=== PATIENT | male | born 1940 | race Caucasian/White ===

== ENCOUNTER 2024-12-09 11:06 | Inpatient (IN) | payer MEDICARE, OTHER ==
[~2024-12-09] VITALS: Ht 175.2 cm; Wt 76.7 kg
[2024-12-09 10:48] VITALS: BP 165/65
[~2024-12-09 11:06] MED LIST: MILK OF MA400 MG/53 PO; PRAZOSIN HCL1 MG PO; TYLENOL325 M2 PO; VITAMIN D3125 MC2 PO
[2024-12-09] MEDS ORDERED: BISACODYL10 MG R (12:18)
[2024-12-09] MEDS ORDERED: MULTIVITAMINS1 EAC6 PO (12:20)
[2024-12-09] MEDS ORDERED: FLEET MINERAL133 ML R (12:20)
[2024-12-09] MEDS ORDERED: hydrOXYzine hydrochloride 50 MG/ML VIAL IM PRN (12:25)
[2024-12-09] MEDS ORDERED: LORazepam 1 MG TAB PO PRN (12:25)
[2024-12-09] MEDS ORDERED: ACETAMINOPHEN 325 MG TAB PO PRN (12:30)
[2024-12-09] MEDS ORDERED: MG-AL HYDROXIDE/SIMETICONE 30 ML UDC PO PRN (12:30)
[2024-12-09] MEDS ORDERED: OMEPRAZOLE40 MG PO (14:57)
[2024-12-09] MEDS ORDERED: HYDROCHLOROTH12.5 M2 PO (14:58)
[2024-12-09] MEDS ORDERED: LASIX40 MG PO (14:58)
[2024-12-09] MEDS ORDERED: ZETIA10 MG PO (14:59)
[2024-12-09] MEDS ORDERED: LOPRESSOR25 MG PO (14:59)
[2024-12-09 20:00] VITALS: BP 141/61
[2024-12-09] MEDS ORDERED: Memantine Hydrochloride 5 MG TAB PO SCH (21:00)
[2024-12-09] MEDS ORDERED: Prazosin Hydrochloride 1 MG CAP PO SCH (22:00)
[2024-12-10 08:41] LABS: LDL CHOLESTEROL 122.0 mg/dL (9-159)
[2024-12-10] MEDS ORDERED: Rivastigmine Tartrate 4.6 MG/24 HR PATCH T SCH (09:00)
[2024-12-10] MEDS ORDERED: Cholecalciferol 5,000 IU CAP (125 MCG) PO SCH (09:00)
[2024-12-10 09:07] LABS: VITAMIN D, 25-HYDROXY 31.2 ng/mL (30-100)
[2024-12-10 09:50] VITALS: BP 126/64
[2024-12-10] MEDS ORDERED: PETROLATUM 42% 100 GM JAR T SCH (12:00)
[2024-12-10 20:47] VITALS: BP 139/80
[2024-12-11 08:00] VITALS: BP 128/53
[2024-12-11] MEDS ORDERED: Memantine Hydrochloride 5 MG TAB PO SCH (11:53)
[2024-12-11 21:16] VITALS: BP 167/75
[2024-12-12 08:00] VITALS: BP 132/65
[2024-12-12 08:17] LABS: BASO # 0.0 10*3/uL (0.0-0.1); BASO % 0.4 % (0.0-1.0); EOS # 0.5 10*3/uL (0.0-0.4); EOS % 5.4 % (1.0-4.0); MEAN CELL VOLUME 82.7 fl (80.0-94.0); MEAN CORPUSCULAR HGB 26.9 pg (27.0-31.0); MEAN PLATELET VOLUME 11.4 fl (9.6-12.3); MONO # 0.5 10*3/uL (0.1-1.0); MONO % 6.1 % (3.0-9.0); NEUT # 5.6 10*3/uL (2.3-7.9); NEUT % 67.6 % (47.0-73.0); NUCLEATED RED BLOOD CELL 0.0 % (0.0-0.0); NUCLEATED RED BLOOD CELL 0.0 10*3/uL (0.0-0.0); PLATELET COUNT AUTOMATED 186 10*3/uL (130-400); RED CELL DISTRI WIDTH 13.5 % (0-14.5)
[2024-12-12 08:37] LABS: BUN 19 mg/dl (9-23); SGPT/ALT 15 U/L (5-49)
[2024-12-12 20:00] VITALS: BP 158/80
[2024-12-13 02:53] VITALS: BP 130/58
[2024-12-13 08:25] VITALS: BP 100/67
[2024-12-13] MEDS ORDERED: LISINOPRIL 5 MG TAB PO SCH (09:00)
[2024-12-13 20:00] VITALS: BP 150/66
[2024-12-14 08:00] VITALS: BP 124/76
[2024-12-14 08:24] VITALS: BP 129/57
[2024-12-14] MEDS ORDERED: Rivastigmine Tartrate 9.5 MG/24 HR PATCH T SCH (09:00)
[2024-12-14] MEDS ORDERED: Memantine Hydrochloride 5 MG TAB PO SCH (09:00)
[2024-12-14 19:08] VITALS: BP 144/56
[2024-12-15 08:00] VITALS: BP 154/76
[2024-12-15 20:00] VITALS: BP 146/70
[2024-12-16 08:30] VITALS: BP 135/64
[2024-12-16] MEDS ORDERED: RIVASTIGMINE 13.3 MG/24 HR TDM T SCH (09:14)
[2024-12-16 20:00] VITALS: BP 154/67
[2024-12-17 08:40] VITALS: BP 142/53
[2024-12-17 20:00] VITALS: BP 120/57
[2024-12-18] MEDS ORDERED: FLUVOXAMINE100 MG PO (06:55)
[2024-12-18] MEDS ORDERED: FLUVOXAMINE50 MG PO (06:55)
[2024-12-18] MEDS ORDERED: MINIPRESS1 M1 PO (06:55)
[2024-12-18] MEDS ORDERED: RIVASTIGMINE1 EAC2 T (06:55)
[2024-12-18] MEDS ORDERED: MEMANTINE HCL10 MG PO (06:55)
[2024-12-18] MEDS ORDERED: VITAMIN D3125 MC1 PO (06:55)
[2024-12-18 08:00] VITALS: BP 141/60
== END 2024-12-18 13:34 | DRG 883 ==
LOC: 3N 11:06
PROVIDERS: Registered Nurse; ADMIT Psychiatry & Neurology Psychiatry; ATTEND Psychiatry & Neurology Psychiatry
PROC: GZHZZZZ Group Psychotherapy (ICD-10-PCS; principal; 2024-12-11)
PROC: GZ56ZZZ Individual Psychotherapy, Supportive (ICD-10-PCS; 2024-12-11)
PROC: 0HBRXZZ Excision of Toe Nail, External Approach (ICD-10-PCS; 2024-12-11)
PROC: 0HBRXZZ Excision of Toe Nail, External Approach (ICD-10-PCS; 2024-12-11)
PROC: 0HBRXZZ Excision of Toe Nail, External Approach (ICD-10-PCS; 2024-12-11)
PROC: 0HBRXZZ Excision of Toe Nail, External Approach (ICD-10-PCS; 2024-12-11)
PROC: 0HBRXZZ Excision of Toe Nail, External Approach (ICD-10-PCS; 2024-12-11)
PROC: 0HBRXZZ Excision of Toe Nail, External Approach (ICD-10-PCS; 2024-12-11)
PROC: 0HBRXZZ Excision of Toe Nail, External Approach (ICD-10-PCS; 2024-12-11)
PROC: 0HBRXZZ Excision of Toe Nail, External Approach (ICD-10-PCS; 2024-12-11)
PROC: 0HBRXZZ Excision of Toe Nail, External Approach (ICD-10-PCS; 2024-12-11)
PROC: 0HBRXZZ Excision of Toe Nail, External Approach (ICD-10-PCS; 2024-12-11)
DX: F63.81 Intermittent explosive disorder (principal); N18.31 Chronic kidney disease, stage 3a; F02.818 Dementia in other diseases classified elsewhere, unspecified severity, with other behavioral disturbance; F02.811 Dementia in other diseases classified elsewhere, unspecified severity, with agitation; I12.9 Hypertensive chronic kidney disease with stage 1 through stage 4 chronic kidney disease, or unspecified chronic kidney disease; E78.2 Mixed hyperlipidemia; F43.10 Post-traumatic stress disorder, unspecified; F42.9 Obsessive-compulsive disorder, unspecified; G30.9 Alzheimer's disease, unspecified; B35.1 Tinea unguium; Z88.1 Allergy status to other antibiotic agents; Z88.8 Allergy status to other drugs, medicaments and biological substances; Z91.09 Other allergy status, other than to drugs and biological substances; Z79.899 Other long term (current) drug therapy; Z79.01 Long term (current) use of anticoagulants; Z79.2 Long term (current) use of antibiotics; Z68.24 Body mass index [BMI] 24.0-24.9, adult